=== PATIENT | male | born 1950 | race Caucasian/White ===

== ENCOUNTER → 2024-08-09 09:27 | Outpatient (BNVA) | payer MEDICARE, SELFPAY | PROVIDERS: PCP Nurse Practitioner Family; Visit Provider Family Medicine | DX: Z13.220 Encounter for screening for lipoid disorders (principal); Z13.6 Encounter for screening for cardiovascular disorders; Z12.5 Encounter for screening for malignant neoplasm of prostate; Z12.11 Encounter for screening for malignant neoplasm of colon; F31.9 Bipolar disorder, unspecified; Z76.89 Persons encountering health services in other specified circumstances | CPT/HCPCS: 80053; 80061; 80164; 84443; 85025; G0103 ==

== ENCOUNTER 2024-10-25 12:43 | Outpatient (CLI) | payer MEDICARE, SELFPAY ==
--- NOTE | 2024-10-25 13:00 | CT_ITS ---
WS: [id number] CT HEAD TECHNIQUE: Noncontrast and contrast-enhanced CT of the head. CLINICAL INFORMATION: G45.9 - Transient cerebral ischemic attack, unspecified COMPARISON: None. DLP: 2053.[address] scans at [facility] use at least one of these dose optimization techniques: automated exposure control; mA and/or kV adjustment per patient size (includes targeted exams where dose is matched to clinical indication); or iterative reconstruction. FINDINGS: No evidence intracranial hemorrhage or mass effect. Ventricular system and basal cisterns are patent. Mild small vessel changes. Moderate parenchymal volume loss. No abnormal intracranial enhancement. Vascular calcification. No extra-axial fluid collections. No evidence of mass or mass effect. Paranasal sinuses are well aerated. Mild mucosal thickening in the RIGHT mastoid air cells. CT/CT head wo/w con [id number] IMPRESSION: 1. No evidence of intracranial hemorrhage or mass effect. 2. No abnormal intracranial enhancement. 3. Mild small vessel changes. Moderate parenchymal volume loss. 4. Vascular calcification.
[2024-10-25 13:12] LABS: Blood Urea Nitrogen 13 mg/dL (8-23)
[2024-10-25] MEDS: iohexol 350 mg/mL 500 mL Btl (per mL) IV (13:21)
== END 2024-10-25 12:44 | disposition home or self-care (01) ==
LOC: RAD 12:47
PROVIDERS: PCP Nurse Practitioner Family; Visit Provider Family Medicine
DX: G45.9 Transient cerebral ischemic attack, unspecified (principal); H53.2 Diplopia; R51.9 Headache, unspecified; H53.8 Other visual disturbances; G31.89 Other specified degenerative diseases of nervous system; I67.89 Other cerebrovascular disease; G93.89 Other specified disorders of brain
CPT/HCPCS: 70470; 82565; 84520

== ENCOUNTER → 2025-01-22 08:58 | Outpatient (BNVA) | payer MEDICARE, SELFPAY | PROVIDERS: PCP Family Medicine; Visit Provider Family Medicine | DX: R97.20 Elevated prostate specific antigen [PSA] (principal); E87.6 Hypokalemia; I10 Essential (primary) hypertension | CPT/HCPCS: 80048; 84153 ==

== ENCOUNTER → 2025-01-29 08:12 | Outpatient (BNVA) | payer MEDICARE, SELFPAY | PROVIDERS: PCP Family Medicine; Visit Provider Family Medicine | DX: F31.9 Bipolar disorder, unspecified (principal); Z79.899 Other long term (current) drug therapy | CPT/HCPCS: 80164 ==